=== PATIENT | male | born 1945 | race Caucasian/White ===

== ENCOUNTER 2022-12-21 10:50 | Outpatient (AMB) | payer MEDICARE, SELFPAY ==
--- NOTE | 2022-12-21 12:40 | AM.OFFWIN_ITS ---
Intake Vital Signs 12/21/22 12:43 Weight 176 lb BP 132/84 Blood Pressure Location Lt brachial Position Sitting Pulse 60 Pulse Source Pulse Oximeter Pulse Oximetry (%) 100 Oxygen Delivery Method Room Air Intake Visit Reasons: EP, Fall, hit head, sleepy Intake Note: Patient here because he had a fall yesterday and hit his head on the congret and was feeling sort of off he states he has been sleeping a lot more and has some memory loss Patient Tobacco Use Status: Former Tobacco user Allergies No Known Allergies Allergy (Verified 12/21/22 13:13) Do you need a note to return to daycare/school/sports/work: No HPI EP, Fall, hit head, sleepy HPI Details 77-year-old male presents to the office for a sick visit. Patient fell and passed out in the garage yesterday. This was captured on the house video camera. He got up on his own and was feeling sleepy in all day. Per patient, he did not bite his tongue or urinate in his pants. Reports a dull headache. He had a similar episode 6 months ago when he was in [place]. He had a seizure which the physician attributed to dehydration. He is not on any antiepileptics. Patient does not have a primary care provider in the area. He lives part-time in [place] and part-time in [place]. [facility] Social History Patient Tobacco Use Status: Former Tobacco user Physical Exam Vital Signs: Last Vital Signs Pulse 60 12/21/22 12:43 BP 132/84 12/21/22 12:43 Pulse Ox 100 12/21/22 12:43 Oxygen Delivery Method Room Air 12/21/22 12:43 Const General: cooperative and healthy appearing Nutritional Appearance: well nourished Orientation/consciousness: patient oriented x3 Limitations: no limitations HEENT Head: Yes normal to inspection Eyes General: appearance normal, both eyes and all related structures Neck Neck: Yes normal visual inspection Chest Chest palpation & inspection: normal palpation of entire chest wall Resp Effort & Inspection: normal respiratory effort Neuro General: patient oriented x3 Assessment & Plan Assessment & Plan (1) Syncope: Code(s): R55 - Syncope and collapse Plan: Patient needs a neurology evaluation. Currently he has returned to baseline state of health. Blood work has been ordered. I will see him as a provider till the neurology workup is completed. An appointment for him on the primary care side has been provided Coding Level of Care Code Est Pt Level 4 (14703) Diagnoses Syncope R55
[2022-12-21 12:43] VITALS: BP 132/84; PULSE 60; O2SAT 100
== END 2022-12-21 13:52 | disposition home or self-care (01) ==
PROVIDERS: Visit Provider Internal Medicine
DX: R55 Syncope and collapse (principal)
CPT/HCPCS: 99214

== ENCOUNTER 2022-12-22 09:23 | Outpatient (REF) | payer MEDICARE, SELFPAY ==
[2022-12-22 11:51] LABS: Appearance Urine Clear; Color Urine Yellow; Glucose Urine UA Negative (Negative); Leukocyte Esterase Urine Negative (Negative); Nitrite Urine Negative (Negative); PH 6.5 (5.0-9.0); Specific Gravity - Urine 1.015 (1.005-1.025); UMIC TRIGGER UA YES; Urine Blood Trace (Negative); Urine Ketones Negative (Negative); Urine Protein Negative (Neg-Trace)
[2022-12-22 12:08] LABS: Bacteria Urine None Seen (None Seen); Hematocrit 39.6 % (42.0-52.0); Hemoglobin 12.9 g/dl (14.0-18.0); Hyaline Casts Urine 0-2 /LPF (0-2); Mean Corpuscular HGB Conc 32.6 g/dl (31.0-36.0); Mean Corpuscular Hemoglobin 31.7 pg (27.0-33.0); Mean Corpuscular Volume 97.3 fL (80.0-98.0); Mean Platelet Volume 9.6 fL (9.4-12.4); Platelet Count 371 X10*3/uL (160-400); Red Blood Count 4.07 X10*6/uL (4.60-5.80); Red Cell Distribution Width 12.8 % (11.0-16.0); Squamous Epithelial Cell Urine 0-2 /HPF (0-2); WBC Urine 0-5 /HPF (0-5); White Blood Count 9.9 X10*3/uL (4.8-10.8)
[2022-12-22 12:45] LABS: Alanine Aminotransferase 24 U/L (0-40); Albumin Level 4.1 g/dL (3.5-5.0); Alkaline Phosphatase 68 U/L (39-117); Anion Gap 16 (12-20); Aspartate Amino Transferase 40 U/L (5-37); Bilirubin Direct 0.4 mg/dL (0.0-0.5); Bilirubin Total 1.4 mg/dL (0.0-1.0); Blood Urea Nitrogen 10 mg/dL (9-16); C Reactive Protein 3.14 mg/dL (< or = 0.50); Calcium 8.4 mg/dL (8.4-10.2); Carbon Dioxide 26 mmol/L (22-29); Chloride 105 mmol/L (96-108); Estimated Glomerular Filt Rate > 60; Glucose Random 90 mg/dL (60-115); Potassium 3.7 mmol/L (3.3-5.1); Sodium 143 mmol/L (135-145); Total Protein 6.9 g/dL (6.5-8.0)
[2022-12-22 13:01] LABS: Thyroid Stimulating Hormone 1.65 uIU/mL (0.32-4.0)
== END 2022-12-22 09:24 | disposition home or self-care (01) ==
LOC: HO.HMGCLDS 09:23
PROVIDERS: Visit Provider Internal Medicine
DX: R55 Syncope and collapse (principal); G40.409 Other generalized epilepsy and epileptic syndromes, not intractable, without status epilepticus; R41.82 Altered mental status, unspecified; M06.9 Rheumatoid arthritis, unspecified; Z79.899 Other long term (current) drug therapy
CPT/HCPCS: 36415; 80048; 80076; 81001; 84443; 85027; 86140

== ENCOUNTER 2022-12-22 13:51 | Outpatient (AMB) | payer MEDICARE, SELFPAY ==
--- NOTE | 2022-12-22 10:41 | AM.OFFVISNUR ---
Intake Intake Visit Reasons: INP - fall, ?seizure Allergies No Known Allergies Allergy (Verified 12/21/22 13:13) Coding
--- NOTE | 2022-12-22 14:07 | A.OFFVIS_ITS ---
Intake Vital Signs 12/22/22 14:14 BP 122/80 Blood Pressure Location Rt brachial Position Sitting Pulse 71 Pulse Source Pulse Oximeter Pulse Oximetry (%) 98 Oxygen Delivery Method Room Air Intake Visit Reasons: INP - fall, ?seizure Intake Note: Patient presents for seizure fall. Patient states' I had a fall in what it appears to have been be a seizure, I had a seizure in April they told me it was a one and done Allergies No Known Allergies Allergy (Verified 12/22/22 14:10) Medication List - Last Reconciled 12/22/22 by TONYA De La Fuente folic acid 1 mg PO DAILY magnesium oxide 400 mg PO DAILY methotrexate sodium 15 mg PO QWEEK omeprazole 20 mg PO BID potassium chloride ER 20 mEq PO BID simvastatin 40 mg PO BEDTIME HPI HPI Comments History of Present Illness Details 77-yr-old male presents for urgent neuro logical evaluation of: recent onset seizure/syncope. Pt is accompanied by his , Halley. Pt has PMH significant for RA (on methotrexate). Pt reports he had a seizure in Apr in [place]. His witnessed the seizure. While sleeping at night, pt woke up screaming, was choking/frothing, became rigid in a sitting position, he bit his tongue. No known urinary incontinence. His called 911, when he came to in the ER, he was confused to where he was, but then he was clear and lucid. He did have significant post-ictal back pain x's a few days. He does not recall being drowsy, but notes that the hospital was loud/bright and he was in a lot of pain. He was admitted to [place], [place]. EEG, head imaging (? head/back)- negative. Lab results were c/w dehydration w/ low magnesium and potassium. He has since been compliant w/ the Mag and K+ supplement. Was not started on AED, as this was thought to be an isolated provoked seizure. On retrospect, pt's realizes that in the days prior to the seizure, pt/ had been returning from [facility] to [facility] after the holidays, and had multiple travel delays, which likely resulted in pt not eating/drinking per usual, and then once he arrived, he did spend a day playing golf. Pt had not had a similar episode prior to the seizure in April or since, however 2 days ago pt had s/s suggestive that he had another episode. Pt reports that he traveled from [place] to [place] this past Tuesday. notes he had some increased stress d/t upcoming meetings. On the way home, he passed a kidney stone on the drive home (but prior to this was having urinary hesitancy and difficulty voiding x's 2 days resulting in poor sleep). The following morning, he slept through his morning meetings. His family was concerned as they had not been able to contact him and dtr had not seen him leave the condo (dtr has a security camera). Finally, was able to reach pt via the phone, but he seemed confused. He did wake up with back pain. He denies any tongue biting or urinary incontinence. He then tried to leave to go back to [place] (again forgetting about the next meeting). As he was packing the car, he tripped walking up a step, landed a bit on his side. On the camera, pt can be seen easily getting back up, loading his car, and leaving. He does not recall being dizzy or having a headache. He then began to drive back to [place]- but calls him, he still sounded confused so asked him to stop driving and family went to get him. Since, he states he is feeling ok, but again his back (right behind/middle of the shoulder pains) is sore. Then yesterday, pt went to urgent care- as was concerned that he might have a concussion or that he had a seizure as he was having similar back pain as he did after nicole seizure in Apr. Patient endorses: Has had some tingling on and off for a couple of days. He has a h/o NAT- but was not given a CPAP. Joint pain. And patient denies: Usual dizziness, headaches. Today's CBC, shows mild anemia, CMP- WNL, UA- mild hematuria. [facility] Medical History (Updated 12/22/22 @ 19:15 by TONYA De La Fuente) Rheumatoid arthritis Surgical History (Updated 12/22/22 @ 14:12 by ROMY Woo) H/O hernia repair History of excision of pilonidal cyst H/O vasectomy Family History (Updated 12/22/22 @ 14:13 by ROMY Woo) Father Mesothelioma Mother CHF (congestive heart failure) Social History (Updated 12/22/22 @ 14:13 by ROMY Woo) Alcohol intake: current Patient Tobacco Use Status: Former Tobacco user Review of Systems Const All systems reviewed & are unremarkable except as noted in HPI and below Physical Exam Vital Signs: Last Vital Signs Pulse 71 12/22/22 14:14 BP 122/80 12/22/22 14:14 Pulse Ox 98 12/22/22 14:14 Oxygen Delivery Method Room Air 12/22/22 14:14 Const General: cooperative and no acute distress Orientation/consciousness: patient oriented x3 HEENT Head: Yes normocephalic Resp Effort & Inspection: normal respiratory effort and able to speak in complete sentences Neuro General: patient oriented x3, CN's II-XI intact bilaterally (w/ exception of facial asymmetry- pt states lifelong) and deep tendon reflexes 2+ bilaterally Gait exam (Neuro): Normal gait present Motor exam (neuro): 5/5 motor strength present throughout Coordination: [id number] test normal and tandem gait normal Pupils: Normal pupillary reactivity/response: bilateral Psych Appearance: grossly normal Mental Status: mental status grossly normal Speech and movement: Normal speech and movement present Affect: normal affect Attitude: cooperative Thought process: Normal thought process present Assessment & Plan Assessment & Plan (1) Syncope: Code(s): R55 - Syncope and collapse (2) Tonic-clonic seizure: Code(s): G40.409 - Other generalized epilepsy and epileptic syndromes, not intractable, without status epilepticus (3) Altered mental status: Code(s): R41.82 - Altered mental status, unspecified Plan More recent episode of AMS a/w confusion, sleepiness, and back pain which is similar to back pain following previous witnessed seizure, does seem c/w an unwi tnessed seizure attack. Pt is advised to undergo urgent sleep-wake EEG. Pt is advised to undergo urgent brain MRI w/wo- to assess for seizure loci, central entiology for convulsive episodes. Discussed ordering in-lab PSG to assess status of sleep apnea- pt would like to hold. try to obtain previous HST report. Consider AED tx after review of above. Will send order for Clonazepam ODT 2mg prn seizure lasting > [address] min[address] advised to NOT drive or engage in high risk activity, such as climbing ladders, tubbathing, operating heavy machinary. f/u in 3-4 weeks, may do televideo visit. Orders: Orders EEG awake and asleep 12/22/22 G40.409 - Other generalized epilepsy and epileptic syndromes, not intractable, without status epilepticus, R41.82 - Altered mental status, unspecified, R55 - Syncope and collapse MR head/brain wo/w con 12/22/22 G40.409 - Other generalized epilepsy and epileptic syndromes, not intractable, without status epilepticus, M06.9 - Rheumatoid arthritis, unspecified, R41.82 - Altered mental status, unspecified, R55 - Syncope and collapse Medications: New clonazepam 2 mg PO DAILY 30 days PRN 5 tabs 1RF seizure activity lasting > 2 minutes Coding Level of Care Code New Pt Level 4 (61176) Diagnoses Syncope R55 Tonic-clonic seizure G40.409 Altered mental status R41.82
[2022-12-22 14:14] VITALS: BP 122/80; PULSE 71; O2SAT 98
== END 2022-12-22 15:44 | disposition home or self-care (01) ==
PROVIDERS: Visit Provider Nurse Practitioner Family
DX: R55 Syncope and collapse (principal); G40.409 Other generalized epilepsy and epileptic syndromes, not intractable, without status epilepticus; R41.82 Altered mental status, unspecified
CPT/HCPCS: 99204

== ENCOUNTER 2022-12-24 06:27 | Outpatient (REF) | payer MEDICARE, SELFPAY ==
--- NOTE | 2022-12-24 06:31 | EEG_ITS ---
This is a 16 channel EEG with an EKG lead. The patient is reported awake and drowsy during the tracing. Background EEG rhythm during wakefulness is 8 to 10 hertz 5 to 50 microvolt posteriorly and lower amplitude fast anteriorly. Patient transitioned in and out of drowsiness. Photic stimulation does not produce any significant abnormality. Hyperventilation is not performed. Cardiac lead does not reveal any significant abnormality. No definite sharp wave spikes or paroxysmal tendency noted. IMPRESSION: No significant abnormality noted on this EEG. MD DIRK Valle/ROMAN / [id number]
== END 2022-12-24 06:28 | disposition home or self-care (01) ==
LOC: HO.NEURO 06:27
PROVIDERS: Visit Provider Nurse Practitioner Family
DX: R55 Syncope and collapse (principal); G40.409 Other generalized epilepsy and epileptic syndromes, not intractable, without status epilepticus; R41.82 Altered mental status, unspecified
CPT/HCPCS: 95819

== ENCOUNTER 2022-12-30 09:31 | Outpatient (AMB) | payer MEDICARE, SELFPAY ==
--- NOTE | 2022-12-30 09:53 | A.OFFPC_ITS ---
Vital Signs 12/30/22 10:03 Height 5 ft 8 in Weight 176 lb 2 oz BMI 26.8 BP 138/80 Blood Pressure Location Lt brachial Position Sitting Pulse 67 Pulse Source Pulse Oximeter Pulse Oximetry (%) 97 Oxygen Delivery Method Room Air Intake Visit Reasons: Syncope f/u Intake Note: Patient is here to follow up on syncope. Requesting lab results 3D Specialist Required: No Slate Mixer: Present Accompanied by: Spouse Allergies No Known Allergies Allergy (Verified 12/30/22 10:40) Medication List - Last Reconciled 12/30/22 by Jose Martin MD clonazepam 2 mg PO DAILY PRN 30 days folic acid 1 mg PO DAILY magnesium oxide 400 mg PO DAILY methotrexate sodium 15 mg PO QWEEK omeprazole 20 mg PO BID potassium chloride ER 20 mEq PO BID simvastatin 40 mg PO BEDTIME Tobacco use date assessed: 12/30/22 Fall risk assessment: 1 Fall in past year Last assessed Fall Risk: 12/30/22 Dental Screening Dental Screen Date: 12/30/22 Did you have a dental visit in the last 12 months?: Yes Did you have a dental problem in the last 6 months where you did not have access to dental care?: No Was dental information given to patient?: Patient has dentist HPI Syncope f/u HPI Details 77-year-old male presents to the office for a sick visit. Patient was seen at the walk-in last week for evaluation of a head injury. He had tripped and fallen in the garage of his house. He he had a similar episode 6 months ago in [place]. This was called a seizure and attributed to electrolyte imbalance. He was put on no seizure medications. He has now seen a neurologist for evaluation. An MRI, Holter monitor and echocardiogram are pending. Patient is not driving till the evaluation is complete. He reports no further episodes of fall or loss of consciousness. According to the patient he is back at baseline state of health. [facility] Medical History (Updated 12/22/22 @ 19:15 by TONYA De La Fuente) Rheumatoid arthritis Surgical History H/O hernia repair History of excision of pilonidal cyst H/O vasectomy Family History (Updated 12/30/22 @ 09:54 by Shimarlia Kwade, RMA) Father Mesothelioma Mother CHF (congestive heart failure) Social History (Updated 12/30/22 @ 10:08 by ROMY Cam) Housing: House Alcohol intake: current Alcohol intake frequency: holidays/special occasions only Patient Tobacco Use Status: Former Tobacco user e-Cigarette/Vaping Use: Never Used Second Hand Smoke Exposure: Yes service: No Current occupational status: employed 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 1. Little interest or pleasure in doing things: not at all 2. Feeling down, depressed, or hopeless: not at all 3. Trouble falling or staying asleep, or sleeping too much: not at all 4. Feeling tired or having little energy: not at all 5. Poor appetite or overeating: not at all 6. Feeling bad about yourself - or that you are a failure or have let yourself or your family down: not at all 7. Trouble concentrating on things, such as reading the newspaper or watching television: not at all 8. Moving or speaking so slowly that other people could have noticed. Or the opposite - being so fidgety or restless that you have been moving around a lot more than usual: not at all 9. Thoughts that you would be better off or of hurting yourself in some way: not at all Total score: 0 Depression Screening Interpretation: Negative Source: Developed by Drs. Misha Patiño, Hattie Pedraza, Trevor Bran and colleagues, with an educational naveen from [employer]. Thrive Questionnaire Date Thrive assessed: 12/30/22 I am a: Patient What is your living situation today?: I have a steady place to live Within the past 12 months, did the food you bought not last and you didn't have the money to get more?: Never true Within the past 12 months, did you worry whether your food would run out before you got money to buy more?: Never true Do you have trouble paying for medicines?: No Do you have trouble getting transportation to medical appointments?: No Do you have trouble paying your heating and electricity bill?: No Do you have trouble taking care of your child, family member or friend?: No Do you have trouble with day-to-day activities such as bathing, preparing meals, shopping, managing finances, etc.?: No Are you currently unemployed and looking for a job?: No Are you interested in more education?: No Currently or been in a relationship where the following occur: no concerns reported AUDIT C Alcohol Use Questionnaire (AUDIT-C) 1. How often do you have a drink containing alcohol?: Monthly or less 2. How many drinks containing alcohol do you have on a typical day when you are drinking?: 1 or 2 Total Score: 1 LEONIDAS-7 AMB Questionnaire LEONIDAS-7 Date LEONIDAS - 7 assessed: 12/30/22 Feeling nervous, anxious, or on edge: 0 = Not at all Not being able to stop or control worryin = Not at all Worrying too much about different things: 0 = Not at all Trouble relaxin = Not at all Being so restless that it is hard to sit still: 0 = Not at all Becoming easily annoyed or irritable: 0 = Not at all Feeling afraid as if something awful might happen: 0 = Not at all Total LEONIDAS-7 score (0-4 normal; 5-9 mild; 10-14 moderate; 15-21 severe): 0 Source: Developed by Drs. Misha Patiño, Hattie Pedraza, Trevor Bran and colleagues, with an educational naveen from [employer]. Physical exam (Primary Care) Vital Signs: Last Vital Signs Pulse 67 12/30/22 10:03 BP 138/80 12/30/22 10:03 Pulse Ox 97 12/30/22 10:03 Oxygen Delivery Method Room Air 12/30/22 10:03 BMI result Body Mass Index 26.8 Tobacco/Smoking Status: Tobacco use Status Tobacco use date assessed 12/30/22 12/30/22 09:56 Patient Tobacco Use Status Former Tobacco user 12/30/22 10:08 e-Cigarette/Vaping Use Never Used 12/30/22 10:08 PHQ-9: PHQ-9 Score PHQ-9: Total score 0 12/30/22 09:56 Depression Screening Interpretation: Negative Thrive Assessment: Date of Thrive Assessment Date Thrive assessed 12/30/22 12/30/22 09:56 Currently or been in a relationship where the following occur: no concerns reported Const General: cooperative and healthy appearing Nutritional Appearance: well nourished Orientation/consciousness: patient oriented x3 Limitations: no limitations HENMT Head: Yes normal to inspection Eyes General: appearance normal, both eyes and all related structures Neck Neck: Yes normal visual inspection Chest Chest palpation & inspection: normal palpation of entire chest wall Resp Effort & Inspection: normal respiratory effort Neuro General: patient oriented x3 Assessment and Plan Assessment & Plan (1) Syncope: Code(s): R55 - Syncope and collapse Plan: Symptoms are being evaluated. Awaiting further workup to complete. Coding Level of Care Code Est Pt Level 3 (46358) Diagnoses Syncope R55
[2022-12-30 10:03] VITALS: BP 138/80; PULSE 67; O2SAT 97; BMI 26.8
== END 2022-12-30 10:39 | disposition home or self-care (01) ==
PROVIDERS: Visit Provider Internal Medicine
DX: R55 Syncope and collapse (principal)
CPT/HCPCS: 99213

== ENCOUNTER → 2022-12-31 13:53 | Outpatient (REF) | payer MEDICARE, SELFPAY ==
--- NOTE | 2022-12-31 13:59 | CA_ITS ---
Transthoracic Echocardiogram Patient (Last, First, Middle): Yao Abel F Gender: Male Date of : 1945 Age: 77 Procedure Date: 12/31/2022 Procedure Type: Transthoracic Echocardiogram Location: OP Height: 175.26 cm Weight: 79.38 kg BSA: 1.95 m2 Heart Rate: bpm BP: 138 / 80 mmHg E Business Specialist: Referring MD: Elli CASTANEDA Symptoms: R55 - Syncope and collapse Study Quality: Fair ECG Rhythm: Sinus Conclusions: - Normal left ventricular size, thickness, systolic function, and wall motion. The visually estimated ejection fraction is between 55-60%. Diastolic function is normal for age. - Normal right ventricular cavity size and systolic function. - There is mild calcification of the aortic valve. Findings Left Ventricle Normal left ventricular size, thickness, systolic function, and wall motion. The visually estimated ejection fraction is between 55-60%. Diastolic function is normal for age. Right Ventricle Normal right ventricular cavity size and systolic function. Atria The left atrium is normal in size. The right atrium is normal in size. Aortic Valve There is a normal trileaflet aortic valve. There is mild calcification of the aortic valve. There is no aortic valve stenosis. There is no aortic valve regurgitation. Mitral Valve The mitral valve appears normal. There is trace mitral valve regurgitation. There is no mitral valve stenosis. Pulmonic Valve The pulmonic valve is likely normal. Tricuspid Valve Normal tricuspid valve structure and function. There is no tricuspid valve regurgitation. Normal right atrial pressure. There is no evidence of pulmonary hypertension. Great Vessels All visible segments of the aorta are normal in size. The visualized portions of the pulmonary artery and branches are normal. Venous The inferior vena cava is normal in size and collapses greater than 50% with inspiration. Pericardium/Pleural There is no evidence of pericardial effusion. Prior Study Comparison No prior study available for comparison. Measurements 2D Linear Measurements IVSd: 1.08 0.6-0.9/0.6-1.0 cm LVIDd: 3.92 3.9-5.3/4.2-5.9 cm LVIDd Index: 2.01 2.4-3.2/2.2-3.1 cm/m2 LVIDs: 2.95 2.0-3.6 cm LVPWd: 1.08 0.7-1.1 cm Ao Root: 3.50 2.1-3.5 cm LA Diam: 3.60 2.7-3.8/3.0-4.0 cm LAIDs Index: 1.85 1.5-2.3 cm/m2 LV Mass: 171.10 67-162/88-224 g LV Mass Index: 87.74 43-95/49-115 g/m2 LVOT Diam: 2.00 3.0+(-)1.3 cm Mitral Valve MV Pk E: 0.57 MV PK A: 0.81 MV Decel Time: 304.00 E/A: 0.70 E'Lateral: 5.66 E'Medial: 4.03 E/E' Med: 14.20 E/E' Lat: 10.10 PHT: 89.00 MVA PHT: 2.47 Decel Stoddard: 1.89 Aortic Valve AoV Pk Vladislav: 1.41 AoV Mn Vladislav: 0.96 AoV VTI: 0.30 AoV Pk Grad: 8.00 Aov Mn Grad: 4.00 DAVON Cont.VTI: 2.14 LVOT LVOT Pk Vladislav: 0.97 LVOT Mn Vladislav: 0.61 LVOT VTI: 0.20 LVOT Pk Grad: 4.00 LVOT Mn Grad: 2.00 LVOT Diam: 2.00 LVOT Area: 3.14 Diastolic Function MV Pk E: 0.57 MV Pk A: 0.81 E/A: 0.70 E'Medial: 4.03 E/E' Med: 14.20 E' Laterial: 5.66 E/E' Lat: 10.10 Right Ventricle TAPSE (mm): 33.00 TVS' Vladislav: 10.00 Tricuspid Valve TR Pk Vladislav: 2.00 TR Pk Grad: 16.00 RA Press: 3.00 RVSP: 19.00 Great Vessels Aorta Ao Root-2D: 3.50 2.0-3.7 cm Ao Asc: 3.20 2.1-3.4 cm Updated in Other Vendor System with Status of Final Sen Dubose MD electronically signed on 01/02/2023 5:19:48 PM with status of Final
--- NOTE | 2022-12-31 13:59 | HM_ITS ---
* Total monitoring time 2 days. * Underlying rhythm is sinus. Average ventricular rate 66/Min. Range 53 to 103/Min. * Rare supraventricular ectopy with minimal burden. Very brief runs noted. * Rare ventricular ectopy with minimal burden. * No significant pauses or AV blocks. * No patient markers or events in diary. MTDD
== END ==
LOC: HO.CARD 13:53
PROVIDERS: PCP Internal Medicine; Visit Provider Nurse Practitioner Family
DX: R55 Syncope and collapse (principal); G40.409 Other generalized epilepsy and epileptic syndromes, not intractable, without status epilepticus; R41.82 Altered mental status, unspecified
CPT/HCPCS: 93225; 93306

== ENCOUNTER → 2022-12-31 13:59 | Outpatient (BNV) | payer MEDICARE, SELFPAY | PROVIDERS: PCP Internal Medicine; Visit Provider Internal Medicine Cardiovascular Disease | DX: I35.8 Other nonrheumatic aortic valve disorders (principal) | CPT/HCPCS: 93306 ==

== ENCOUNTER 2023-01-11 08:52 | Outpatient (AMB) | payer MEDICARE, SELFPAY ==
[2023-01-11 09:03] VITALS: BP 136/84; PULSE 66; BMI 27.1
--- NOTE | 2023-01-11 09:03 | MHC.OFFVIS ---
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 Patient 77-year-old male with recently diagnosed tonic clonic seizure in April in [place]. Since then he has been on medications. He is a very active gentleman who plays golf regularly and does exercise without any symptoms of exertion of chest pain or shortness of breath. Recently after traveling from [place] by himself in a tough time at that time given his issues with renal stones. He subsequently the following day in the morning missed his appointment which is highly unusual for him. He was subsequently noted to be somewhat confused and altered mental status. Exact etiology of this is unclear. However subsequently was walking up the steps and missed a step and he fell down injuring his head although he did not have any seizure event. He said he was completely conscious the entire time. This episode also recorded and the security camera. He said he has never had any syncopal episodes. Denies any orthostatic lightheadedness. He subsequently had an echocardiogram which shows normal structure of the heart Holter monitor which showed no significant arrhythmias or bradycardia. 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 Cognitive needs: No Hearing needs: Yes (hearing aide) Vision needs: Yes (Glasses) Review of Systems Const Denies chills, Denies fatigue, Denies fever(s), Denies frequent falls, Denies weakness, Denies weight gain and Denies weight loss Eyes Denies loss of vision ENT Denies dizziness Card Denies chest pain, Denies leg edema, Denies lightheadedness, Denies palpitations, Denies dyspnea, Denies dyspnea on exertion, Denies orthopnea and Denies other (loss of consciousness) Resp Denies cough, Denies dyspnea, Denies dyspnea on exertion and Denies wheezing GI Denies hematochezia and Denies change in stool character Denies dysuria and Denies urinary frequency Musc Denies abnormal gait, Denies muscle weakness, Denies numbness, Denies radiating pain into limb and Denies tingling Skin/Breast Denies nail changes and Denies rash Neuro Denies abnormal gait, Denies dizziness, Denies frequent falls, Denies loss of vision, Denies memory loss, Denies numbness, Denies tingling and Denies weakness Psych Denies depression and Denies memory loss Endo Denies fatigue and Denies palpitations Viktor/Lymph Reports easy bruising and Reports other (anemia) Aller/Immun Denies wheezing Physical Exam Vital Signs: Last Vital Signs Pulse 66 01/11/23 09:03 BP 136/84 01/11/23 09:03 BMI result Body Mass Index 27.1 Const General: cooperative, comfortable, no acute distress, well developed, alert, awake, Physically active and well groomed Nutritional Appearance: average body habitus and well nourished Orientation/consciousness: patient oriented x3 Limitations: no limitations HEENT Head: Yes normocephalic and Yes atraumatic Neck Neck: Yes trachea midline, Yes supple and Yes no JVD Resp Effort & Inspection: normal respiratory effort Auscultation: clear to auscultation bilaterally Cardio Jugular venous distension: no JVD Palpation: normal PMI Rate: regular rate Rhythm: regular rhythm Heart sounds: S1 normal heart sound present, S2 normal heart sound present, no click, no gallops, no murmurs and no rubs GI Auscultation: normal bowel sounds Skin General skin exam: no rashes or lesions noted Neuro General: patient oriented x3 and no focal motor deficits Extrem General: Yes no clubbing, cyanosis or edema Office Procedures EKG Details: EKG shows normal sinus rhythm and otherwise generally normal EKG [id number], Complete Assessment & Plan Assessment & Plan (1) Altered mental status: Code(s): R41.82 - Altered mental status, unspecified Plan: One episode of unclear altered mental status question postictal. Subsequently had a fall but no syncopal episode. Subsequent cardiac workup including structure of the heart and Holter monitor have been benign. He has no exertional symptoms and no orthostatic lightheadedness. I do not thing any further workup from cardiac perspective is indicated. Benign cardiac workup so far was discussed with him. Discussed given his age and functional status to maintain adequate hydration. Advised to call me with any new symptoms. Continue manage his seizure disorder through Neurology. Consider long-term monitoring for his seizure. Will follow up in the clinic if need be. Thank you for allowing me to partake in his care Coding Level of Care Code New Pt Level 3 (26693) Diagnoses Altered mental status R41.82 CPT Codes EKG - CPT: 74204-[id number], Complete ([id number])
== END 2023-01-11 14:49 | disposition home or self-care (01) ==
PROVIDERS: PCP Internal Medicine; Visit Provider Internal Medicine Cardiovascular Disease
DX: R41.82 Altered mental status, unspecified (principal)
CPT/HCPCS: 93010; 99203

== ENCOUNTER → 2023-01-11 08:52 | Outpatient (BNVA) | payer MEDICARE, SELFPAY | PROVIDERS: PCP Internal Medicine; Visit Provider Internal Medicine Cardiovascular Disease | DX: R41.82 Altered mental status, unspecified (principal) | CPT/HCPCS: 93005; 99202 ==

== ENCOUNTER 2023-09-08 08:56 | Outpatient (AMB) | payer MEDICARE, SELFPAY ==
--- NOTE | 2023-09-08 09:05 | MHC.PC.OV ---
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 Per spouse pt had seizure on 07/23/23 and was hospital ([place], [place]) Activity Manager Required: No Property Claims Adjuster: Present Accompanied by: Spouse Allergies No Known Allergies Allergy (Verified 09/08/23 09:07) Medication List - Last Reconciled 09/08/23 by Jose Martin MD calcium amino acid chelate 200 mg PO DAILY clonazepam 2 mg PO DAILY PRN 30 days folic acid 1 mg PO DAILY levetiracetam 750 mg PO BID magnesium oxide 400 mg PO DAILY methotrexate sodium 15 mg PO QWEEK omeprazole 20 mg PO BID potassium chloride ER 20 mEq PO BID simvastatin 40 mg PO BEDTIME tamsulosin 0.4 mg PO BEDTIME Tobacco use date assessed: 09/08/23 Fall risk assessment: No Falls in past year Last assessed Fall Risk: 09/08/23 Dental Screening Dental Screen Date: 09/08/23 Did you have a dental visit in the last 12 months?: Yes Did you have a dental problem in the last 6 months where you did not have access to dental care?: No Was dental information given to patient?: Patient has dentist HPI AVIATION SAFETY OFFICER appt Per HPI Details 78-year-old male presents to the office to establish his care here. He lives 8 months of the year in [place] and 4 months and [place]. He would like to have a primary care physician in both the areas. Patient had a seizure in 07/2023. He has had prior seizures and no cause has been a certain. The recent seizure was in [place] and he was hospitalized for 48 hours. No specific abnormality was determined. Patient was started on Keppra. He had similar episodes when he was here last year. Patient saw the local neurologist and was scheduled to have a sleep study which never got done. He would like to get the sleep study done. Other chronic conditions include rheumatoid arthritis. [facility], [facility] Medical History (Updated 09/08/23 @ 09:56 by Jose Martin MD) Benign prostatic hyperplasia (BPH) with post-void dribbling GERD (gastroesophageal reflux disease) Seizure disorder Rheumatoid arthritis Surgical History H/O hernia repair History of excision of pilonidal cyst H/O vasectomy Family History Father Mesothelioma Mother CHF (congestive heart failure) Social History Housing: House Alcohol intake: current Alcohol intake frequency: holidays/special occasions only Patient Tobacco Use Status: Former Tobacco user e-Cigarette/Vaping Use: Never Used Second Hand Smoke Exposure: Yes service: No Current occupational status: employed 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 1. Little interest or pleasure in doing things: not at all 2. Feeling down, depressed, or hopeless: not at all 3. Trouble falling or staying asleep, or sleeping too much: not at all 4. Feeling tired or having little energy: not at all 5. Poor appetite or overeating: not at all 6. Feeling bad about yourself - or that you are a failure or have let yourself or your family down: not at all 7. Trouble concentrating on things, such as reading the newspaper or watching television: not at all 8. Moving or speaking so slowly that other people could have noticed. Or the opposite - being so fidgety or restless that you have been moving around a lot more than usual: not at all Depression Screening Interpretation: Negative Depression Screening Done: Yes Source: Developed by Drs. Misha Patiño, Hattie Pedraza, Trevor Bran and colleagues, with an educational naveen from [employer]. Thrive Questionnaire Date Thrive assessed: 09/08/23 I am a: Patient What is your living situation today?: I have a steady place to live Within the past 12 months, did the food you bought not last and you didn't have the money to get more?: Never true Within the past 12 months, did you worry whether your food would run out before you got money to buy more?: Never true Do you have trouble paying for medicines?: No Do you have trouble getting transportation to medical appointments?: No Do you have trouble paying your heating and electricity bill?: No Do you have trouble taking care of your child, family member or friend?: No Do you have trouble with day-to-day activities such as bathing, preparing meals, shopping, managing finances, etc.?: No Are you currently unemployed and looking for a job?: No Are you interested in more education?: No Currently or been in a relationship where the following occur: no concerns reported THRIVE Score: 0 AUDIT C Alcohol Use Questionnaire (AUDIT-C) 1. How often do you have a drink containing alcohol?: Monthly or less 2. How many drinks containing alcohol do you have on a typical day when you are drinking?: 1 or 2 Total Score: 1 LEONIDAS-7 AMB Questionnaire LEONIDAS-7 Date LEONIDAS - 7 assessed: 09/08/23 Feeling nervous, anxious, or on edge: 0 = Not at all Not being able to stop or control worryin = Not at all Worrying too much about different things: 0 = Not at all Trouble relaxin = Not at all Being so restless that it is hard to sit still: 0 = Not at all Becoming easily annoyed or irritable: 0 = Not at all Feeling afraid as if something awful might happen: 0 = Not at all Total LEONIDAS-7 score (0-4 normal; 5-9 mild; 10-14 moderate; 15-21 severe): 0 Source: Developed by Drs. Misha Patiño, Hattie Pedraza, Trevor Bran and colleagues, with an educational naveen from [employer]. Physical exam (Primary Care) Vital Signs: Last Vital Signs Pulse 60 09/08/23 09:07 BP 110/60 09/08/23 09:07 Pulse Ox 96 09/08/23 09:07 Oxygen Delivery Method Room Air 09/08/23 09:07 Care Plan Goal for BP management: blood pressure is in range. BMI result Body Mass Index 26.2 Tobacco/Smoking Status: Tobacco use Status Tobacco use date assessed 09/08/23 09/08/23 09:20 Patient Tobacco Use Status Former Tobacco user 09/08/23 09:05 e-Cigarette/Vaping Use Never Used 09/08/23 09:05 Depression Screening Interpretation: Negative Thrive Assessment: Date of Thrive Assessment Date Thrive assessed 09/08/23 09/08/23 09:20 Currently or been in a relationship where the following occur: no concerns reported Const General: cooperative and healthy appearing Nutritional Appearance: well nourished Orientation/consciousness: patient oriented x3 Limitations: no limitations HENMT Head: Yes normal to inspection Eyes General: appearance normal, both eyes and all related structures Neck Neck: Yes normal visual inspection Chest Chest palpation & inspection: normal palpation of entire chest wall Resp Effort & Inspection: normal respiratory effort Neuro General: patient oriented x3 Assessment and Plan Assessment & Plan (1) GERD (gastroesophageal reflux disease): Code(s): K21.9 - Gastro-esophageal reflux disease without esophagitis Plan: Continue omeprazole at same dosage. (2) Seizure disorder: Code(s): G40.909 - Epilepsy, unspecified, not intractable, without status epilepticus Plan: Keppra to be continued at same dosage. Neurology will be contacted to see if patient can get his sleep study. patient is receiving clonazepam when he has active seizures. (3) Rheumatoid arthritis: Code(s): M06.9 - Rheumatoid arthritis, unspecified Plan: Continue methotrexate at same dosage. 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 Coding Level of Care Code Est Pt Level 4 (72640) Complex EM visit Add On G2211 Diagnoses GERD (gastroesophageal reflux disease) K21.9 Seizure disorder G40.909 Rheumatoid arthritis M06.9
[2023-09-08 09:07] VITALS: BP 110/60; PULSE 60; O2SAT 96; BMI 26.2
== END 2023-09-08 09:57 | disposition home or self-care (01) ==
PROVIDERS: Visit Provider Internal Medicine
DX: K21.9 Gastro-esophageal reflux disease without esophagitis (principal); G40.909 Epilepsy, unspecified, not intractable, without status epilepticus; M06.9 Rheumatoid arthritis, unspecified
CPT/HCPCS: 99214; G2211